=== PATIENT | female | born 1985 | race Caucasian/White ===

== ENCOUNTER 2023-09-10 15:42 | Outpatient (RCR) | payer BC, SELFPAY ==
[2023-09-10 14:22] LABS: % Eosinophils 11.9 % (0-6); % Immature Granulocytes 0.2 % (0-0.5); % Lymphocytes 35.4 % (20.5-51.1); % Neutrophils 43.5 % (42.2-75.2); Absolute Basophils 0.1 10^3/uL (0-0.2); Absolute Eosinophils 0.7 10^3/uL (0-0.7); Absolute Lymphocytes 2.2 10^3/uL (1.2-3.4); Absolute Monocytes 0.5 10^3/uL (0.1-0.6); Absolute Neutrophils 2.7 10^3/uL (1.4-6.5); Hematocrit 27.1 % (37.0-47.0); Hemoglobin 8.4 g/dL (12.0-16.0); Mean Corpuscular Hgb 21.9 pg (27.0-31.0); Mean Corpuscular Volume 70.6 fL (81.0-99.0); Mean Platelet Volume 12.6 fL (7.4-10.4); Nucleated Red Blood Cells % 0 %; Platelet Count 248 10^3/uL (130-400); Red Blood Cell Count 3.84 10^6/uL (4.20-5.40); Red Cell Dist. Width 14.5 % (11.5-14.5); White Blood Cell Count 6.1 10^3/uL (4.8-10.8)
== END 2023-09-25 23:59 | disposition home or self-care (01) ==
LOC: OID 15:42
PROVIDERS: ATTENDING PHYSICIAN Internal Medicine Hematology & Oncology
DX: D50.0 Iron deficiency anemia secondary to blood loss (chronic) (principal)
CPT/HCPCS: 85025

== ENCOUNTER → 2023-11-14 06:33 | Day surgery (SDC) | payer BC, SELFPAY | LOC: GI 06:33 | PROVIDERS: ATTENDING PHYSICIAN Internal Medicine | DX: D50.9 Iron deficiency anemia, unspecified (principal); K64.8 Other hemorrhoids; K29.70 Gastritis, unspecified, without bleeding; K20.90 Esophagitis, unspecified without bleeding; K44.9 Diaphragmatic hernia without obstruction or gangrene; K31.89 Other diseases of stomach and duodenum; Z98.84 Bariatric surgery status | CPT/HCPCS: 45378; 43239; 88305; 88342 ==

== ENCOUNTER 2024-02-09 15:06 | Emergency (ER) | payer BC, SELFPAY ==
[2024-02-09 15:11] VITALS: BP 138/83
--- NOTE | 2024-02-09 15:28 | ED.GENMED ---
History of Present Illness
General
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
Source: patient
Time Seen by Provider: 02/09/24 15:20
History of Present Illness
History of Present Illness:
38yoF presenting for evaluation of vaginal discharge. Patient reports discharge and an odor that began about 1.5 weeks ago. She started her menstrual period 2-3 days ago and her odor has been worsening since then. Patient states it smelled like a
'rotting corpse.' Her started to notice the odor yesterday as well. She examined herself today and noticed that she had a retained tampon in place which she was able to remove. She believes the tampon has been in place for a month since her
last menstrual period. She denies any fevers or chills. She reports nausea and mild suprapubic pain. No dysuria. She denies any concerns for STDs.
Phy Exam
General Physical Exam
General Presentation: well appearing and no apparent distress
General age: appears stated age
General Skin: warm and dry
General Habitus: normal
General Mental: alert
Pulmonary Exam
Pulmonary Exam: no respiratory distress
Gastrointestinal Exam
Gastrointestinal Exam: soft, non distended and tender (Minimal tenderness in suprapubic region)
Genitourinary Exam Female
Exam Female: no adnexal tenderness, no CMT, vaginal bleeding and other (Vaginal bleeding noted on speculum exam (patient currently on menses). Visualized portion of cervix appears normal without any purulent discharge. No CMT. )
Hope Coma Scale
Eye Opening: Spontaneous
Verbal Response: Oriented
Motor Response: Obeys Commands
GCS Total Score: 15
Skin Exam
Skin Exam: normal color and warm/dry
Psychiatric Exam
Psychiatric Exam: normal mood/affect
Course
Vital Signs
Initial and Last Documented VS:
Initial Vital Signs
Temp Pulse Resp BP Pulse Ox
98.1 F 107 16 138/83 98
02/09/24 15:11 02/09/24 15:11 02/09/24 15:11 02/09/24 15:11 02/09/24 15:11
Last Documented Vital Signs
Temp Pulse Resp BP Pulse Ox
98.4 F 77 17 106/71 99
02/09/24 16:06 02/09/24 16:06 02/09/24 16:06 02/09/24 16:06 02/09/24 16:06
MDM/Problems Addressed
Differential Diagnosis Includes:
38yoF here with foul smelling vaginal discharge x 1.5 weeks. She discovered a retained tampon earlier today which she removed. No fevers or chills. She denies concern for STDs. She is afebrile and hemodynamically stable. She is well appearing in no
distress. No purulent discharge or cervical motion tenderness noted on pelvic exam.
Foul smelling discharge is likely 2/2 to retained tampon. No clinical evidence of PID, toxic shock syndrome, or vaginitis at this time. Offered antibiotics to patient although no signs of infection present currently. Patient would like to hold off
on abx at this time. Advised f/u with PCP and OBGYN. Strict ED return precautions discussed including fevers. Patient discharged in stable condition.
*Critical Care Note
Total Time (30-74mins, 75-104mins- exclusive of procedures): Not Applicable
ED Attending Note
-
Portions of this chart may have been created with voice recognition software.� Occasional wrong word or��sound alike� substitutions may have occurred due to the inherent limitations of voice recognition software.
Discharge Plan
Departure
Patient Disposition: Home (Routine Discharge)
Date of Disposition: 02/09/24
Time of Disposition: 16:01
Patient with high blood pressure during this ER visit?: No
Discharge Problem:
Vaginal discharge
Instructions: Vaginal discharge
Referrals:
Oral Serra DO [Family Provider] -
Shira Girard DO [Active] -
Activity Restrictions/Additional Instructions:
Please follow-up with your family doctor and OBGYN. Return to the ER with any worsening symptoms, severe pain, fevers.
Interventions
Interventions:
*Risk Screen - Suicide Last Done: 02/09/24 15:11
*General Assessment Last Done: 02/09/24 15:11
*Neglect/Abuse Screening Last Done: 02/09/24 15:11
ED- Fall Risk Assessment Last Done: 02/09/24 15:23
*ED COVID-19 Vaccine History Last Done: 02/09/24 15:23
*Nursing Disposition Last Done: 02/09/24 16:06
ED-Female Genitourinary Assessment Last Done: 02/09/24 15:45
Discharge Date and Time
Discharge Date/Time: 02/09/24 16:07
Print Language: MOROCCAN
[2024-02-09 16:05] VITALS: BMI 31.1
[2024-02-09 16:06] VITALS: BP 106/71
== END 2024-02-09 16:07 | disposition home or self-care (01) ==
LOC: EMR 15:06
PROVIDERS: EMERGENCY PHYSICIAN Emergency Medicine; FAMILY PHYSICIAN Family Medicine
DX: N89.8 Other specified noninflammatory disorders of vagina (principal)
CPT/HCPCS: 99282

== ENCOUNTER 2024-07-24 11:35 | Emergency (ER) | payer BC, SELFPAY ==
[2024-07-24 11:57] VITALS: BP 127/82
[2024-07-24 12:14] LABS: % Basophils 1.2 % (0-2); % Eosinophils 13.1 % (0-6); % Immature Granulocytes 0.2 % (0-0.5); % Monocytes 8.3 % (1.7-9.3); % Neutrophils 44.2 % (42.2-75.2); Absolute Basophils 0.1 10^3/uL (0-0.2); Absolute Eosinophils 0.7 10^3/uL (0-0.7); Absolute Lymphocytes 1.7 10^3/uL (1.2-3.4); Absolute Monocytes 0.4 10^3/uL (0.1-0.6); Absolute Neutrophils 2.2 10^3/uL (1.4-6.5); Hematocrit 30.1 % (37.0-47.0); Hemoglobin 9.6 g/dL (12.0-16.0); Mean Corp Hgb Conc. 31.9 g/dL (33.0-37.0); Mean Corpuscular Hgb 25.3 pg (27.0-31.0); Mean Corpuscular Volume 79.2 fL (81.0-99.0); Mean Platelet Volume 10.7 fL (7.4-10.4); Nucleated Red Blood Cells % 0 %; Platelet Count 270 10^3/uL (130-400); Red Cell Dist. Width 13.1 % (11.5-14.5)
[2024-07-24 12:30] LABS: HCG, Serum Qualitative Screen Negative
[2024-07-24 12:33] LABS: ALT (SGPT) 19 U/L (0-35); AST (SGOT) 20 U/L (14-36); Albumin 4.7 g/dl (3.5-5.0); Alkaline Phosphatase 55 U/L (38-126); Blood Urea Nitrogen 18 mg/dl (7-17); Calcium 9.5 mg/dl (8.4-10.2); Carbon Dioxide 27 mmol/L (22-30); Chloride 102 mmol/L (98-107); Glucose 85 mg/dl (70-99); Potassium 4.2 mmol/L (3.5-5.1); Sodium 136 mmol/L (135-145); Total Bilirubin 0.6 mg/dl (0.2-1.3); Total Protein 7.1 g/dl (6.3-8.2); eGFR > 60.00
--- NOTE | 2024-07-24 14:38 | ED.GENMED ---
History of Present Illness
General
Chief Complaint: Abnormal Lab Value
Time Seen by Provider: 07/24/24 13:56
History of Present Illness
History of Present Illness:
39-year-old female with history of iron deficiency anemia presenting to the emergency department for dizziness and lightheadedness. Patient reports symptoms for the past several days. Notes that she feels similarly when her iron is low. She also
reports some chest tightness and difficulty breathing. Denies any history of blood clots, or any exogenous estrogen. She has not currently bleeding, denies being on her menstrual cycle. Denies fever or recent illness. Denies abdominal pain or GI
symptoms. She recently had her blood counts checked, notes that her hemoglobin was in the 8 range. She called her diaphragm builder for her symptoms, was told to come to the hospital for iron infusion. Denies additional medical complaints
Phy Exam
Physical Exam
Physical Exam:
General: Well-appearing, no clinical signs of dehydration, nontoxic and in no acute distress
HEENT: protecting airway
Neck: appears supple
CV: Normal heart rate, regular rhythm
Resp: No accessory muscle use, no increased work of breathing, lungs clear to auscultation bilaterally
Abd: no distension
Extremities: No deformities, no swelling
Neuro: alert, no focal neurologic deficit
: deferred
Rectal: deferred
Psych: Normal affect
Skin: Intact
Course
Orders/Labs/Results
Orders:
Orders
07/24/24 11:36
EKG [Electrocardiogram (*1)] Urgent
Reason for Study: Syncope
07/24/24 11:37
EKG- Treatment ONCE
07/24/24 12:00
Test Result ONCE
07/24/24 12:05
Type+Screen Urgent
Complete Blood Count/With Diff Urgent
Comprehensive Metabolic Panel Urgent
HCG, Serum Qualitative Screen Urgent
07/24/24 12:14
ABO2 Routine
BBK Wristband Number:
Associate notified that ABO2 has been ordered: [id number]
Date: 07/24/24
Time: 12:14
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
Abnormal Lab Results
07/24/24
12:05
RBC 3.80 L 10^6/uL
(4.20-5.40)
Hgb 9.6 L g/dL
(12.0-16.0)
Hct 30.1 L %
(37.0-47.0)
MCV 79.2 L fL
(81.0-99.0)
MCH 25.3 L pg
(27.0-31.0)
MCHC 31.9 L g/dL
(33.0-37.0)
MPV 10.7 H fL
(7.4-10.4)
Eosinophils % 13.1 H %
(0-6)
BUN 18 H mg/dl
(7-17)
07/24/24 12:05
07/24/24 12:05
Vital Signs
Initial and Last Documented VS:
Initial Vital Signs
Temp Pulse Resp BP Pulse Ox
98.8 F 93 16 127/82 98
07/24/24 11:57 07/24/24 11:57 07/24/24 11:57 07/24/24 11:57 07/24/24 11:57
Last Documented Vital Signs
Temp Pulse Resp BP Pulse Ox
98.8 F 93 16 127/82 98
07/24/24 11:57 07/24/24 11:57 07/24/24 11:57 07/24/24 11:57 07/24/24 11:57
MDM/Problems Addressed
MDM/Problems Addressed:
39-year-old female with history of iron deficiency anemia presenting to the emergency department for dizziness, lightheadedness, shortness of breath. Vital signs are normal.
On exam patient is resting comfortably, no acute distress or discomfort. EKG obtained on arrival, nonischemic, no arrhythmia. Patient hemodynamically stable. Patient reports that she usually feels this way when her iron is low. Reports that her
iron was checked by her diaphragm builder to be low. Her last 5 months ago. She denies any bleeding, she is not on her menstrual cycle. Without present concern for significant volume depletion. Will repeat laboratory analysis. Patient otherwise
afebrile, nontoxic without concern for systemic infection. No neurologic findings on exam without concern for central neurologic process.
14:40 - Hemoglobin is 9.6. Did touch base with oncology. Plan for outpatient iron infusion. No emergent need for any blood transfusion or iron infusion. Feel stable for discharge. Return precautions discussed
*EKG
Interpreted by ED Provider?: Yes
EKG Intrepretation Date: 07/24/24
EKG Intrepretation Time: 14:42
Interpretation: normal
Heart Rate: 97
Rate: normal
Rhythm: sinus
Miller: normal axis
Interval: normal interval
QRS Pattern: normal QRS
Ischemia: no ischemia
*Critical Care Note
Total Time (30-74mins, 75-104mins- exclusive of procedures): Not Applicable
ED Attending Note
-
Portions of this chart may have been created with voice recognition software.� Occasional wrong word or��sound alike� substitutions may have occurred due to the inherent limitations of voice recognition software.
Discharge Plan
Interventions
Interventions:
*Risk Screen - Suicide Last Done: 07/24/24 11:57
*Neglect/Abuse Screening Last Done: 07/24/24 11:57
Discharge Date and Time
Print Language: NEPALI
[2024-07-24 15:50] VITALS: BP 108/70
== END 2024-07-24 17:23 | disposition home or self-care (01) ==
LOC: EMR 11:35
PROVIDERS: Emergency Medicine; EMERGENCY PHYSICIAN Student in an Organized Health Care Education/Training Program; FAMILY PHYSICIAN Family Medicine
DX: D50.9 Iron deficiency anemia, unspecified (principal); R42 Dizziness and giddiness; R07.89 Other chest pain
CPT/HCPCS: 99283; 80053; 84703; 85025; 86850; 86900; 86901; 93005

== ENCOUNTER → 2024-08-01 09:16 | Outpatient (REF) | payer BC, SELFPAY ==
[2024-08-01 09:26] LABS: % Basophils 1.3 % (0-2); % Eosinophils 11.4 % (0-6); % Immature Granulocytes 0.2 % (0-0.5); % Lymphocytes 30.6 % (20.5-51.1); % Monocytes 5.7 % (1.7-9.3); % Neutrophils 50.8 % (42.2-75.2); Absolute Basophils 0.1 10^3/uL (0-0.2); Absolute Eosinophils 0.6 10^3/uL (0-0.7); Absolute Lymphocytes 1.7 10^3/uL (1.2-3.4); Absolute Monocytes 0.3 10^3/uL (0.1-0.6); Absolute Neutrophils 2.8 10^3/uL (1.4-6.5); Hematocrit 29.5 % (37.0-47.0); Hemoglobin 9.2 g/dL (12.0-16.0); Mean Corp Hgb Conc. 31.2 g/dL (33.0-37.0); Mean Corpuscular Hgb 24.9 pg (27.0-31.0); Mean Corpuscular Volume 79.7 fL (81.0-99.0); Mean Platelet Volume 11.9 fL (7.4-10.4); Platelet Count 159 10^3/uL (130-400); Red Cell Dist. Width 13.4 % (11.5-14.5); White Blood Cell Count 5.4 10^3/uL (4.8-10.8)
== END ==
LOC: OIDL 09:16
PROVIDERS: ATTENDING PHYSICIAN Nurse Practitioner Adult Health
DX: D50.0 Iron deficiency anemia secondary to blood loss (chronic) (principal)
CPT/HCPCS: 85025

== ENCOUNTER → 2024-08-11 09:26 | Outpatient (REF) | payer BC, SELFPAY ==
[2024-08-11 09:57] LABS: % Eosinophils 10.3 % (0-6); % Immature Granulocytes 0.2 % (0-0.5); % Lymphocytes 25.4 % (20.5-51.1); % Monocytes 5.4 % (1.7-9.3); % Neutrophils 57.7 % (42.2-75.2); Absolute Basophils 0.1 10^3/uL (0-0.2); Absolute Eosinophils 0.6 10^3/uL (0-0.7); Absolute Lymphocytes 1.5 10^3/uL (1.2-3.4); Absolute Monocytes 0.3 10^3/uL (0.1-0.6); Absolute Neutrophils 3.3 10^3/uL (1.4-6.5); Hemoglobin 9.4 g/dL (12.0-16.0); Mean Corp Hgb Conc. 31.3 g/dL (33.0-37.0); Mean Corpuscular Hgb 25.4 pg (27.0-31.0); Mean Corpuscular Volume 81.1 fL (81.0-99.0); Mean Platelet Volume 11.2 fL (7.4-10.4); Platelet Count 242 10^3/uL (130-400); Red Cell Dist. Width 17.1 % (11.5-14.5); White Blood Cell Count 5.7 10^3/uL (4.8-10.8)
== END ==
LOC: OIDL 09:26
PROVIDERS: ATTENDING PHYSICIAN Nurse Practitioner Adult Health
DX: D50.0 Iron deficiency anemia secondary to blood loss (chronic) (principal)
CPT/HCPCS: 85025

== ENCOUNTER → 2024-12-10 08:10 | Outpatient (REF) | payer BC, SELFPAY | LOC: HWRAD 08:10 | PROVIDERS: ATTENDING PHYSICIAN Student in an Organized Health Care Education/Training Program; FAMILY PHYSICIAN Family Medicine | DX: N93.9 Abnormal uterine and vaginal bleeding, unspecified (principal) | CPT/HCPCS: 76830; 76856 ==